=== PATIENT | male | born 1975 | race Caucasian/White ===

== ENCOUNTER → 2023-12-27 | Outpatient (CLI) | payer OTHER ==
[~2023-12-27] MED LIST: E-Z-GAS II EFFERVESCENT PACKET (SODIUM BICARB./CITRIC ACID/SIMETHICONE) As Ordered ONE; E-Z-HD 98% w/w 340GM SUSP BTL As Ordered ONE; E-Z-PAQUE 96% w/w SUSP 176GM BTL As Ordered ONE; ISOVUE-370 76% 100ML VIAL As Ordered ONE; OMEP-173 PO; SUMA25TA3
== END ==
LOC: M RAD 07:54
PROVIDERS: ATTEND Otolaryngology
DX: R49.0 Dysphonia (principal); R07.0 Pain in throat; K22.89 Other specified disease of esophagus
CPT/HCPCS: 70491; 74220; Q9967

== ENCOUNTER 2024-01-27 08:43 | Day surgery (SDC) | payer OTHER ==
[~2024-01-27] VITALS: Ht 182.9 cm; Wt 88.0 kg
[~2024-01-27 08:43] MED LIST changes: -E-Z-GAS II EFFERVESCENT PACKET (SODIUM BICARB./CITRIC ACID/SIMETHICONE) As Ordered ONE; -E-Z-HD 98% w/w 340GM SUSP BTL As Ordered ONE; -E-Z-PAQUE 96% w/w SUSP 176GM BTL As Ordered ONE; -ISOVUE-370 76% 100ML VIAL As Ordered ONE; -SUMA25TA3; +SUMA25TA3 PO
[2024-01-27] MEDS ORDERED: LR 1,000 ML IV SCH ×2 (08:50→11:25)
[2024-01-27] MEDS: LIDOCAINE W/EPINEPHRINE 1% 20ML VIAL As Ordered ONE (10:35)
[2024-01-27] MEDS ORDERED: MIDAZOLAM INJ 2MG/2ML VIAL As Ordered ONE (10:49)
[2024-01-27] MEDS: METHYLENE BLUE 0.5% (5MG/ML) 10 ML AMP (PROVAYBLUE) As Ordered ONE (11:12)
[2024-01-27] MEDS: OXYMETAZOLINE 0.05% NASAL SPRAY (AFRIN) As Ordered ONE (11:12)
[2024-01-27] MEDS ORDERED: oxyCODONE 5MG TAB PO PRN (11:25)
[2024-01-27] MEDS ORDERED: ONDANSETRON 4MG 2ML VIAL IV PRN (11:25)
[2024-01-27] MEDS ORDERED: HYDROMORPHONE HCL 0.5 MG/ 0.5 ML SYRINGE IV PRN (11:25)
[2024-01-27] MEDS ORDERED: fentaNYL 100 MCG/2 ML INJECTION IV PRN (11:25)
[2024-01-27 12:10] VITALS: BP 118/83; TEMP 97.6; O2SAT 99
== END 2024-01-27 12:29 | disposition home or self-care (01) ==
LOC: M SDC 08:43
PROVIDERS: ATTEND Otolaryngology
DX: J38.1 Polyp of vocal cord and larynx (principal); K21.9 Gastro-esophageal reflux disease without esophagitis; D45 Polycythemia vera; G43.909 Migraine, unspecified, not intractable, without status migrainosus; Z79.899 Other long term (current) drug therapy; Z88.0 Allergy status to penicillin; Z88.8 Allergy status to other drugs, medicaments and biological substances
CPT/HCPCS: 31541; 88305; J2250; Q9968

== ENCOUNTER 2024-07-30 10:48 | Day surgery (SDC) | payer OTHER ==
[~2024-07-30] VITALS: Ht 182.9 cm; Wt 85.3 kg
[~2024-07-30 10:48] MED LIST changes: +ACET1TAB55 PO; +IBUP200C28 PO; +LIDOCAINE 2% 100MG/5ML SDV (FOR ANES.) As Ordered ONE; +fentaNYL 100 MCG/2 ML INJECTION As Ordered ONE; +propofoL 500 MG/50 ML VIAL As Ordered ONE
[2024-07-30] MEDS ORDERED: ePHEDrine SULFATE 25 MG/5 ML(5MG/ML) SYRINGE As Ordered ONE (12:11)
[2024-07-30] MEDS ORDERED: propofoL 200 MG/20 ML VIAL As Ordered ONE (12:13)
[2024-07-30] MEDS ORDERED: SIMETHICONE 40MG/0.6ML DROPS 30ML As Ordered ONE (12:14)
[2024-07-30 12:29] VITALS: TEMP 97.5
[2024-07-30 12:55] VITALS: BP 116/77; O2SAT 100
== END 2024-07-30 13:01 | disposition home or self-care (01) ==
LOC: M OPP 10:48
PROVIDERS: ATTEND Internal Medicine Gastroenterology
DX: K62.5 Hemorrhage of anus and rectum (principal); K64.8 Other hemorrhoids; K22.89 Other specified disease of esophagus; K22.70 Barrett's esophagus without dysplasia; K20.90 Esophagitis, unspecified without bleeding; R12 Heartburn; R05.3 Chronic cough; J04.0 Acute laryngitis; R93.3 Abnormal findings on diagnostic imaging of other parts of digestive tract; Z88.0 Allergy status to penicillin; Z88.8 Allergy status to other drugs, medicaments and biological substances; Z79.1 Long term (current) use of non-steroidal anti-inflammatories (NSAID); Z79.899 Other long term (current) drug therapy
CPT/HCPCS: 43239; 45378; 88305; J3010